=== PATIENT | female | born 1970 | race Caucasian/White ===

== ENCOUNTER 2023-06-14 13:21 | Emergency (ER) | payer OTHER ==
[2023-06-14 13:47] VITALS: BP 136/101; PULSE 91; RESP 18; TEMP 98.1
== END 2023-06-14 14:35 | disposition left against medical advice (07) ==
LOC: EC 13:21
DX: Z53.21 Procedure and treatment not carried out due to patient leaving prior to being seen by health care provider (principal)
CPT/HCPCS: 99499